=== PATIENT | male | born 1965 | race Caucasian/White ===

== ENCOUNTER → 2018-11-15 | Outpatient (CLI) | payer OTHER ==
[~2018-11-15] MED LIST: GADOBUTROL 15 MMOL/15 ML VIAL ONE
== END | disposition home or self-care (01) ==
LOC: RAD 16:20
PROVIDERS: ATTEND Nurse Practitioner Primary Care
DX: J32.0 Chronic maxillary sinusitis (principal)
CPT/HCPCS: 70553; A9585